=== PATIENT | female | born 1985 | race Caucasian/White ===

== ENCOUNTER 2022-10-15 16:27 | Inpatient (IN) | payer BC, SELFPAY ==
[2022-10-15 17:47] LABS: Mean Corpuscular HGB CONC 30.9 g/dL (32.0-36.0); Mean Corpuscular Hemoglobin 28.4 pg (27.0-31.0); Mean Corpuscular Volume 91.9 fl (78.0-98.0); Mean Platelet Volume 10.1 fL (7.4-10.4); Platelet Count 261 10x3/uL (130-400); RBC Distribution Width 16.5 % (11.5-14.5); Red Blood Cell (RBC) Count 5.28 mill/uL (4.20-5.40); White Blood Cell (WBC) Count 18.3 10x3/uL (4.8-10.8)
[2022-10-15] MEDS ORDERED: Magnesium 2 GM/50 ML BAG (IN WATER) ONE (18:05)
[2022-10-15 18:07] LABS: BHCG - Serum Negative (NEGATIVE); Delete Auto Diff?? YES; Manual Diff?? YES; Pregs Control Background? CLEAR/WHITE (CLR/WHITE); Pregs Control Bar Appear? YES (CONTROL BAR)
[2022-10-15 18:09] LABS: ALT (SGPT) 452 U/L (8-55); AST (SGOT) 637 U/L (5-34); Albumin 3.1 g/dL (3.5-5.0); Alkaline Phosphatase 39 U/L (40-110); Anion Gap 16 mmol/L (10-20); BUN (Urea Nitrogen) 22 mg/dL (7.0-18.7); Calc. Creatinine Clearance 0 mL/min (70-130); Calcium 8.9 mg/dL (7.8-10.44); Carbon Dioxide 26 mmol/L (22-29); Chloride 92 mmol/L (98-107); Estimated GFR 82; Globulin 3.5 g/dL (2.4-3.5); Glucose 118 mg/dL (70-105); Potassium 5.1 mmol/L (3.5-5.1); Protein, Total 6.6 g/dL (6.0-8.3); Sodium 129 mmol/L (136-145)
[2022-10-15] MEDS ORDERED: Ipratropium/Albuterol 3 ML NEB ONE (18:32)
[2022-10-15 18:40] LABS: Anisocytosis SLIGHT = 6-15 cells HPF (0-5); Band 5 % (5-11); Burr Cells MODERATE= 6-15 cells HPF (0-1); CellaVision Operator ID LAB.KB; Hypochromia SLIGHT = 6-15 cells HPF (0-5); Lymphocytes 5 % (21-51); Monocytes 9 % (0-10); Myelocyte 2 % (0-0); Neutrophil 80 % (42-75); Nucleated RBC (Manual Ct) 4 % (0); Platelet Adequacy Comment Platelets Normal; Polychromasia SLIGHT = 2-3 cells HPF (0-2); Smudge Cells 7.8 %; Total Cell Count 103
[2022-10-15 18:45] LABS: CKMB 3.1 ng/mL (0-6.6)
[2022-10-15] MEDS ORDERED: Aspirin Chewable 81 MG TAB ONE (18:59)
[2022-10-15] MEDS ORDERED: cefTRIAXone (ROCEPHIN) 2 GM VIAL ONE (18:59)
[2022-10-15] MEDS ORDERED: predniSONE 20 MG TAB ONE (18:59)
[2022-10-15] MEDS ORDERED: Furosemide 40 MG/4 ML VIAL ONE (18:59)
[2022-10-15] MEDS ORDERED: Azithromycin 250 MG TAB ONE (18:59)
[2022-10-15] MEDS ORDERED: Ondansetron ODT 4 MG TAB PO PRN (19:48)
[2022-10-15] MEDS ORDERED: Senokot S 8.6-50 MG TAB PO PRN (19:48)
[2022-10-15] MEDS ORDERED: Calcium Carbonate 500 MG ChewTAB PO PRN (19:48)
[2022-10-15] MEDS ORDERED: Nicotine 21 MG PATCH TD SCH (20:00)
[2022-10-15] MEDS ORDERED: Carvedilol 3.125 MG TAB PO SCH (21:00)
[2022-10-15] MEDS: Famotidine 20 MG TAB PO SCH (22:08)
[2022-10-15] MEDS ORDERED: Morphine 4 MG/ML VIAL SLOW IVP SCH (23:45)
[2022-10-16] MEDS ORDERED: Ipratropium/Albuterol 3 ML NEB NEB PRN (00:01)
[2022-10-16 00:25] LABS: Troponin I 0.319 ng/mL (< 0.028)
[2022-10-16 02:27] LABS: Amphetamine Not Detected (NotDetected); Barbiturates Screen Not Detected (NotDetected); Benzodiazepine Screen Not Detected (NotDetected); Cocaine Metabolite Screen Not Detected (NotDetected); Methadone Not Detected (NotDetected); Methamphetamine Not Detected (NotDetected); Opiate Screen Not Detected (NotDetected); Oxycodone Screen Not Detected (NotDetected); Phencyclidine (PCP) Not Detected (NotDetected); THC/Cannabinoid Screen Not Detected (NotDetected); Tricyclic Screen Not Detected (NotDetected)
[2022-10-16] MEDS: Furosemide 40 MG/4 ML VIAL SLOW IVP SCH ×2 (04:57→18:30)
[2022-10-16 05:29] LABS: #Monocytes 1.5 thou/uL (0.11-0.59); #Neutrophils 17.3 thou/uL (1.40-6.50); %Basophils 0.2 % (0.0-1.0); %Lymphocytes 4.1 % (21.0-51.0); %Monocytes 7.2 % (0.0-10.0); %Neutrophils 86.2 % (42.0-75.0); Hemoglobin 15.7 g/dL (12.0-16.0); Mean Corpuscular HGB CONC 30.4 g/dL (32.0-36.0); Mean Corpuscular Hemoglobin 28.2 pg (27.0-31.0); Mean Corpuscular Volume 92.6 fl (78.0-98.0); Mean Platelet Volume 10.8 fL (7.4-10.4); Platelet Count 257 10x3/uL (130-400); RBC Distribution Width 16.5 % (11.5-14.5); Red Blood Cell (RBC) Count 5.57 mill/uL (4.20-5.40); White Blood Cell (WBC) Count 20.1 10x3/uL (4.8-10.8)
[2022-10-16 05:58] LABS: ALT (SGPT) 416 U/L (8-55); AST (SGOT) 406 U/L (5-34); Albumin 3.2 g/dL (3.5-5.0); Alkaline Phosphatase 43 U/L (40-110); Anion Gap 16 mmol/L (10-20); BUN (Urea Nitrogen) 23 mg/dL (7.0-18.7); Bilirubin, Total 2.3 mg/dL (0.2-1.2); Calc. Creatinine Clearance 253 mL/min (70-130); Calcium 9.2 mg/dL (7.8-10.44); Carbon Dioxide 29 mmol/L (22-29); Chloride 94 mmol/L (98-107); Estimated GFR 88; Globulin 3.9 g/dL (2.4-3.5); Glucose 166 mg/dL (70-105); Potassium 5.1 mmol/L (3.5-5.1); Protein, Total 7.1 g/dL (6.0-8.3); Sodium 134 mmol/L (136-145)
[2022-10-16] MEDS: cefTRIAXone\\ROCEPHIN 1 GM in Sodium Chloride 0.9% 100 ML IVPB SCH (09:40)
[2022-10-16] MEDS: Aspirin Chewable 81 MG TAB PO SCH (09:41)
[2022-10-16] MEDS: Lisinopril 2.5 MG TAB PO SCH (09:41)
[2022-10-16] MEDS: Famotidine 20 MG TAB PO SCH ×2 (09:41→21:10)
[2022-10-16 10:58] LABS: Actual Bicarbonate (HCO3a) 32.7 mEq/L (22-28); Base Excess (BEa) 2.9 mEq/L (-2.0 to +3.0); Calcium, Ionized (arterial) 1.13 mmol/L (1.12-1.30); Carboxyhemoglobin (COHb) 2.5 gm% (0.0-3.0); Hematocrit-ABG 46 % (36.0-47.0); Hemoglobin (Hb) 15.8 g/dL (12.0-16.0); O2 Tension (PaO2), arterial 72.5 mmHg (80.0-100.0); Potassium - ABG Lab 4.05 mmol/L (3.70-5.30); pH, Arterial 7.265 (7.35-7.45)
[2022-10-16 11:01] LABS: CO2 Tension 73.6 mmHg (35.0-45.0)
[2022-10-16 11:02] LABS: Puncture Site LRA
[2022-10-16] MEDS: Acetaminophen 325 MG TAB PO PRN (22:32)
[2022-10-17] MEDS: Furosemide 40 MG/4 ML VIAL SLOW IVP SCH ×2 (05:55→13:12)
[2022-10-17] MEDS: Lisinopril 2.5 MG TAB PO SCH (09:51)
[2022-10-17] MEDS: Apixaban 5 MG TAB PO SCH ×2 (09:51→21:00)
[2022-10-17] MEDS: Famotidine 20 MG TAB PO SCH ×2 (09:52→21:00)
[2022-10-17] MEDS: Aspirin Chewable 81 MG TAB PO SCH (09:52)
[2022-10-17] MEDS: cefTRIAXone\\ROCEPHIN 1 GM in Sodium Chloride 0.9% 100 ML IVPB SCH (09:55)
[2022-10-17 10:55] LABS: #Eosinphils 0.1 thou/uL (0.0-0.7); #Monocytes 2.3 thou/uL (0.11-0.59); #Neutrophils 12.6 thou/uL (1.40-6.50); %Basophils 0.2 % (0.0-1.0); %Eosinophils 0.3 % (0.0-10.0); %Lymphocytes 7.8 % (21.0-51.0); %Neutrophils 76.7 % (42.0-75.0); Hemoglobin 14.1 g/dL (12.0-16.0); Mean Corpuscular HGB CONC 29.2 g/dL (32.0-36.0); Mean Corpuscular Hemoglobin 28.4 pg (27.0-31.0); Mean Corpuscular Volume 97.2 fl (78.0-98.0); Mean Platelet Volume 10.8 fL (7.4-10.4); Platelet Count 210 10x3/uL (130-400); RBC Distribution Width 16.7 % (11.5-14.5); Red Blood Cell (RBC) Count 4.97 mill/uL (4.20-5.40); White Blood Cell (WBC) Count 16.5 10x3/uL (4.8-10.8)
[2022-10-17 11:17] LABS: Anion Gap 15 mmol/L (10-20); BUN (Urea Nitrogen) 18 mg/dL (7.0-18.7); Calc. Creatinine Clearance 314 mL/min (70-130); Calcium 8.9 mg/dL (7.8-10.44); Carbon Dioxide 37 mmol/L (22-29); Chloride 90 mmol/L (98-107); Estimated GFR 114; Glucose 99 mg/dL (70-105); Sodium 138 mmol/L (136-145)
[2022-10-17] MEDS: Acetaminophen 325 MG TAB PO PRN (21:07)
[2022-10-18] MEDS: Furosemide 40 MG/4 ML VIAL SLOW IVP SCH ×2 (06:37→15:08)
[2022-10-18] MEDS: Aspirin Chewable 81 MG TAB PO SCH (08:13)
[2022-10-18] MEDS: Lisinopril 2.5 MG TAB PO SCH (08:13)
[2022-10-18] MEDS: Famotidine 20 MG TAB PO SCH ×2 (08:14→20:14)
[2022-10-18] MEDS: cefTRIAXone\\ROCEPHIN 1 GM in Sodium Chloride 0.9% 100 ML IVPB SCH (08:14)
[2022-10-18] MEDS: Apixaban 5 MG TAB PO SCH ×2 (08:14→20:14)
[2022-10-18 08:41] LABS: #Basophils 0.1 thou/uL (0.0-0.2); #Eosinphils 0.1 thou/uL (0.0-0.7); #Monocytes 1.5 thou/uL (0.11-0.59); #Neutrophils 10.7 thou/uL (1.40-6.50); %Basophils 0.4 % (0.0-1.0); %Eosinophils 0.4 % (0.0-10.0); %Lymphocytes 8.6 % (21.0-51.0); %Monocytes 10.8 % (0.0-10.0); Hemoglobin 14.8 g/dL (12.0-16.0); Mean Corpuscular HGB CONC 30.1 g/dL (32.0-36.0); Mean Corpuscular Hemoglobin 28.3 pg (27.0-31.0); Mean Platelet Volume 10.6 fL (7.4-10.4); Platelet Count 224 10x3/uL (130-400); RBC Distribution Width 16.7 % (11.5-14.5); Red Blood Cell (RBC) Count 5.23 mill/uL (4.20-5.40); White Blood Cell (WBC) Count 13.7 10x3/uL (4.8-10.8)
[2022-10-18 08:45] LABS: Mean Corpuscular Volume 93.9 fl (78.0-98.0)
[2022-10-18 08:59] LABS: Anion Gap 17 mmol/L (10-20); BUN (Urea Nitrogen) 16 mg/dL (7.0-18.7); Calc. Creatinine Clearance 322 mL/min (70-130); Calcium 9.4 mg/dL (7.8-10.44); Carbon Dioxide 36 mmol/L (22-29); Chloride 90 mmol/L (98-107); Estimated GFR 114; Glucose 144 mg/dL (70-105); Potassium 4.1 mmol/L (3.5-5.1); Sodium 139 mmol/L (136-145)
[2022-10-18] MEDS ORDERED: Iopamidol-370 76% 500 ML MDV (1 ML CHARGE) ONE (10:08)
[2022-10-19] MEDS: Acetaminophen 325 MG TAB PO PRN ×2 (02:03→20:21)
[2022-10-19 03:44] LABS: #Eosinphils 0.1 thou/uL (0.0-0.7); #Monocytes 1.9 thou/uL (0.11-0.59); #Neutrophils 10.6 thou/uL (1.40-6.50); %Basophils 0.1 % (0.0-1.0); %Eosinophils 0.5 % (0.0-10.0); %Lymphocytes 7.7 % (21.0-51.0); %Neutrophils 77.2 % (42.0-75.0); Hemoglobin 13.8 g/dL (12.0-16.0); Mean Corpuscular HGB CONC 29.6 g/dL (32.0-36.0); Mean Corpuscular Volume 94.5 fl (78.0-98.0); Mean Platelet Volume 9.8 fL (7.4-10.4); Platelet Count 239 10x3/uL (130-400); RBC Distribution Width 16.4 % (11.5-14.5); Red Blood Cell (RBC) Count 4.93 mill/uL (4.20-5.40); White Blood Cell (WBC) Count 13.7 10x3/uL (4.8-10.8)
[2022-10-19] MEDS: traMADol HCl 50 MG TAB PO PRN ×2 (03:47→20:21)
[2022-10-19] MEDS ORDERED: Morphine 4 MG/ML VIAL SLOW IVP SCH (04:00)
[2022-10-19 04:04] LABS: BUN (Urea Nitrogen) 11 mg/dL (7.0-18.7); Calc. Creatinine Clearance 348 mL/min (70-130); Calcium 9.3 mg/dL (7.8-10.44); Estimated GFR 117; Glucose 116 mg/dL (70-105)
[2022-10-19 04:14] LABS: Anion Gap 19 mmol/L (10-20); Carbon Dioxide 43 mmol/L (22-29); Chloride 84 mmol/L (98-107); Potassium 3.5 mmol/L (3.5-5.1); Sodium 142 mmol/L (136-145)
[2022-10-19] MEDS: Furosemide 40 MG/4 ML VIAL SLOW IVP SCH (05:49)
[2022-10-19] MEDS: Lisinopril 2.5 MG TAB PO SCH (10:05)
[2022-10-19] MEDS: cefTRIAXone\\ROCEPHIN 1 GM in Sodium Chloride 0.9% 100 ML IVPB SCH (10:05)
[2022-10-19] MEDS: Famotidine 20 MG TAB PO SCH ×2 (10:05→20:21)
[2022-10-19] MEDS: Apixaban 5 MG TAB PO SCH ×2 (10:05→20:20)
[2022-10-19] MEDS: Aspirin Chewable 81 MG TAB PO SCH (10:05)
[2022-10-19] MEDS: Nystatin Powder 15 GM BOT TOP SCH (20:20)
[2022-10-19] MEDS: acetaZOLAMIDE Sodium 500 mg Vial IVP SCH (20:20)
[2022-10-20 04:05] LABS: #Eosinphils 0.2 thou/uL (0.0-0.7); #Monocytes 1.9 thou/uL (0.11-0.59); #Neutrophils 9.5 thou/uL (1.40-6.50); %Basophils 0.2 % (0.0-1.0); %Eosinophils 1.3 % (0.0-10.0); %Lymphocytes 10.4 % (21.0-51.0); %Monocytes 14.4 % (0.0-10.0); %Neutrophils 73.3 % (42.0-75.0); Hemoglobin 13.3 g/dL (12.0-16.0); Mean Corpuscular HGB CONC 28.4 g/dL (32.0-36.0); Mean Corpuscular Hemoglobin 27.9 pg (27.0-31.0); Mean Corpuscular Volume 98.3 fl (78.0-98.0); Mean Platelet Volume 10.3 fL (7.4-10.4); Platelet Count 254 10x3/uL (130-400); RBC Distribution Width 16.4 % (11.5-14.5); Red Blood Cell (RBC) Count 4.76 mill/uL (4.20-5.40); White Blood Cell (WBC) Count 12.9 10x3/uL (4.8-10.8)
[2022-10-20 04:29] LABS: BUN (Urea Nitrogen) 10 mg/dL (7.0-18.7); Calc. Creatinine Clearance 364 mL/min (70-130); Calcium 9.7 mg/dL (7.8-10.44); Estimated GFR 118; Glucose 105 mg/dL (70-105)
[2022-10-20 04:38] LABS: Anion Gap 18 mmol/L (10-20); Carbon Dioxide 42 mmol/L (22-29); Chloride 84 mmol/L (98-107); Potassium 3.3 mmol/L (3.5-5.1); Sodium 141 mmol/L (136-145)
[2022-10-20] MEDS ORDERED: Sterile Water 10 ML ONE (08:25)
[2022-10-20] MEDS: acetaZOLAMIDE Sodium 500 mg Vial IVP SCH ×2 (09:05→20:23)
[2022-10-20] MEDS: Apixaban 5 MG TAB PO SCH ×2 (09:06→20:23)
[2022-10-20] MEDS: Famotidine 20 MG TAB PO SCH ×2 (09:07→20:23)
[2022-10-20] MEDS: Aspirin Chewable 81 MG TAB PO SCH (09:07)
[2022-10-20] MEDS: Lisinopril 2.5 MG TAB PO SCH (09:07)
[2022-10-20] MEDS: cefTRIAXone\\ROCEPHIN 1 GM in Sodium Chloride 0.9% 100 ML IVPB SCH (09:07)
[2022-10-20] MEDS: Nystatin Powder 15 GM BOT TOP SCH ×2 (09:08→20:28)
[2022-10-20] MEDS: Acetaminophen 325 MG TAB PO PRN (20:23)
[2022-10-20] MEDS: traMADol HCl 50 MG TAB PO PRN (20:24)
[2022-10-21] MEDS: Acetaminophen 325 MG TAB PO PRN ×2 (03:40→10:13)
[2022-10-21] MEDS: traMADol HCl 50 MG TAB PO PRN (03:40)
[2022-10-21 03:58] LABS: #Basophils 0.1 thou/uL (0.0-0.2); #Eosinphils 0.2 thou/uL (0.0-0.7); #Neutrophils 11.7 thou/uL (1.40-6.50); %Basophils 0.3 % (0.0-1.0); %Eosinophils 1.4 % (0.0-10.0); %Lymphocytes 7.7 % (21.0-51.0); %Neutrophils 77.1 % (42.0-75.0); Hemoglobin 14.1 g/dL (12.0-16.0); Mean Corpuscular Hemoglobin 27.9 pg (27.0-31.0); Mean Corpuscular Volume 97.2 fl (78.0-98.0); Mean Platelet Volume 10.1 fL (7.4-10.4); Platelet Count 273 10x3/uL (130-400); RBC Distribution Width 16.8 % (11.5-14.5); Red Blood Cell (RBC) Count 5.05 mill/uL (4.20-5.40); White Blood Cell (WBC) Count 15.2 10x3/uL (4.8-10.8)
[2022-10-21 04:09] LABS: Mean Corpuscular HGB CONC 28.7 g/dL (32.0-36.0)
[2022-10-21 04:22] LABS: BUN (Urea Nitrogen) 11 mg/dL (7.0-18.7); Calc. Creatinine Clearance 367 mL/min (70-130); Calcium 10.3 mg/dL (7.8-10.44); Estimated GFR 118; Glucose 106 mg/dL (70-105)
[2022-10-21 05:09] LABS: Carbon Dioxide 37 mmol/L (22-29); Chloride 87 mmol/L (98-107); Potassium 3.8 mmol/L (3.5-5.1); Sodium 139 mmol/L (136-145)
[2022-10-21 05:11] LABS: Anion Gap 19 mmol/L (10-20)
[2022-10-21] MEDS: Famotidine 20 MG TAB PO SCH ×2 (10:13→21:15)
[2022-10-21] MEDS: Apixaban 5 MG TAB PO SCH (10:14)
[2022-10-21] MEDS: Aspirin Chewable 81 MG TAB PO SCH (10:14)
[2022-10-21] MEDS: cefTRIAXone\\ROCEPHIN 1 GM in Sodium Chloride 0.9% 100 ML IVPB SCH (10:14)
[2022-10-21] MEDS: Lisinopril 2.5 MG TAB PO SCH (10:15)
[2022-10-21] MEDS: acetaZOLAMIDE Sodium 500 mg Vial IVP SCH ×2 (10:15→21:30)
[2022-10-21] MEDS: Nystatin Powder 15 GM BOT TOP SCH ×2 (10:34→22:28)
[2022-10-21 12:07] LABS: Actual Bicarbonate (HCO3a) 38.3 mEq/L (22-28); Base Excess (BEa) 7.3 mEq/L (-2.0 to +3.0); Calcium, Ionized (arterial) 1.19 mmol/L (1.12-1.30); Carboxyhemoglobin (COHb) 2.3 gm% (0.0-3.0); Hematocrit-ABG 43 % (36.0-47.0); Hemoglobin (Hb) 14.6 g/dL (12.0-16.0); O2 Tension (PaO2), arterial 93.3 mmHg (80.0-100.0); Potassium - ABG Lab 3.78 mmol/L (3.70-5.30)
[2022-10-21 12:11] LABS: CO2 Tension 89.3 mmHg (35.0-45.0); Puncture Site RRA
[2022-10-21 12:12] LABS: ALV-art Gradient 194.355 mmHg (0-20)
[2022-10-21 13:41] LABS: Base Excess 13.8 mEq/L (-2.0 to +3.0); Calcium, Ionized (venous) 1.21 mmol/L (1.16-1.32); Chloride (VBG) 90 mmol/L (98-106); Hematocrit-VBG 42 % (36.0-47.0); Hemoglobin (Hb) 14.2 g/dL (11.7-15.5); Potassium (VBG) 3.71 mmol/L (3.70-5.30); Sodium 136.2 mmol/L (133-146); pH (venous) 7.271 (7.32-7.43)
[2022-10-21] MEDS: Bumetanide 1 MG/4 ML VIAL IVP SCH (15:12)
[2022-10-21] MEDS ORDERED: Bumetanide 1 MG/4 ML VIAL IVP SCH (15:15)
[2022-10-21] MEDS: Dexmedetomidine 400 MCG, Admixture Fee 1 EACH in Sodium Chloride 0.9% 96 ML IVPB SCH (18:02)
[2022-10-21 20:51] LABS: Base Excess 14.7 mEq/L (-2.0 to +3.0); Calcium, Ionized (venous) 1.16 mmol/L (1.16-1.32); Chloride (VBG) 90 mmol/L (98-106); Hematocrit-VBG 42 % (36.0-47.0); Hemoglobin (Hb) 14.3 g/dL (11.7-15.5); Potassium (VBG) 3.76 mmol/L (3.70-5.30); Sodium 137.5 mmol/L (133-146); pH (venous) 7.387 (7.32-7.43)
[2022-10-21] MEDS ORDERED: Sterile Water 10 ML ONE (21:26)
[2022-10-21] MEDS ORDERED: NOREPINEPHRINE 8 MG/250 ML-D5W 250 ML IVPB SCH (22:30)
[2022-10-22] MEDS: Apixaban 5 MG TAB PO SCH (00:14)
[2022-10-22] MEDS: Dexmedetomidine 400 MCG, Admixture Fee 1 EACH in Sodium Chloride 0.9% 96 ML IVPB SCH ×2 (02:45→11:13)
[2022-10-22 04:29] LABS: #Eosinphils 0.2 thou/uL (0.0-0.7); #Monocytes 1.8 thou/uL (0.11-0.59); #Neutrophils 10.3 thou/uL (1.40-6.50); %Basophils 0.3 % (0.0-1.0); %Eosinophils 1.1 % (0.0-10.0); %Lymphocytes 8.5 % (21.0-51.0); %Monocytes 13.3 % (0.0-10.0); %Neutrophils 76.1 % (42.0-75.0); Hemoglobin 13.7 g/dL (12.0-16.0); Mean Corpuscular HGB CONC 29.1 g/dL (32.0-36.0); Mean Corpuscular Hemoglobin 27.7 pg (27.0-31.0); Mean Corpuscular Volume 94.9 fl (78.0-98.0); Mean Platelet Volume 10.3 fL (7.4-10.4); Platelet Count 319 10x3/uL (130-400); Red Blood Cell (RBC) Count 4.95 mill/uL (4.20-5.40); White Blood Cell (WBC) Count 13.6 10x3/uL (4.8-10.8)
[2022-10-22 05:53] LABS: BUN (Urea Nitrogen) 13 mg/dL (7.0-18.7); Calc. Creatinine Clearance 375 mL/min (70-130); Calcium 10.1 mg/dL (7.8-10.44); Estimated GFR 120; Glucose 108 mg/dL (70-105)
[2022-10-22 06:42] LABS: Carbon Dioxide Greater than 37 mmol/L (22-29); Chloride 89 mmol/L (98-107); Potassium 3.9 mmol/L (3.5-5.1); Sodium 137 mmol/L (136-145)
[2022-10-22 08:21] LABS: Actual Bicarbonate (HCO3v) 37.9 mEq/L (22-28); Base Excess 9.5 mEq/L (-2.0 to +3.0); Calcium, Ionized (venous) 1.16 mmol/L (1.16-1.32); Chloride (VBG) 92 mmol/L (98-106); Hematocrit-VBG 45 % (36.0-47.0); Hemoglobin (Hb) 15.2 g/dL (11.7-15.5); Potassium (VBG) 3.99 mmol/L (3.70-5.30); Sodium 136.3 mmol/L (133-146); pH (venous) 7.365 (7.32-7.43)
[2022-10-22] MEDS: cefTRIAXone\\ROCEPHIN 1 GM in Sodium Chloride 0.9% 100 ML IVPB SCH (08:36)
[2022-10-22] MEDS: Aspirin Chewable 81 MG TAB PO SCH (08:37)
[2022-10-22] MEDS: Famotidine 20 MG TAB PO SCH (08:37)
[2022-10-22] MEDS: acetaZOLAMIDE Sodium 500 mg Vial IVP SCH ×2 (08:37→21:32)
[2022-10-22] MEDS: Nystatin Powder 15 GM BOT TOP SCH ×2 (08:38→21:28)
[2022-10-22] MEDS: Lisinopril 2.5 MG TAB PO SCH (08:38)
[2022-10-22] MEDS ORDERED: Bumetanide 1 MG/4 ML VIAL IVP SCH (10:15)
[2022-10-22] MEDS ORDERED: Sterile Water 10 ML ONE (21:30)
[2022-10-23] MEDS: Dexmedetomidine 400 MCG, Admixture Fee 1 EACH in Sodium Chloride 0.9% 96 ML IVPB SCH (01:35)
[2022-10-23 04:38] LABS: #Basophils 0.1 thou/uL (0.0-0.2); #Eosinphils 0.2 thou/uL (0.0-0.7); #Neutrophils 8.5 thou/uL (1.40-6.50); %Basophils 0.6 % (0.0-1.0); %Eosinophils 1.3 % (0.0-10.0); %Lymphocytes 14.4 % (21.0-51.0); %Monocytes 15.6 % (0.0-10.0); %Neutrophils 67.2 % (42.0-75.0); Hemoglobin 12.2 g/dL (12.0-16.0); Mean Corpuscular HGB CONC 29.8 g/dL (32.0-36.0); Mean Corpuscular Hemoglobin 27.5 pg (27.0-31.0); Mean Corpuscular Volume 92.3 fl (78.0-98.0); Mean Platelet Volume 10.7 fL (7.4-10.4); Platelet Count 298 10x3/uL (130-400); RBC Distribution Width 16.9 % (11.5-14.5); Red Blood Cell (RBC) Count 4.43 mill/uL (4.20-5.40); White Blood Cell (WBC) Count 12.7 10x3/uL (4.8-10.8)
[2022-10-23 05:07] LABS: Anion Gap 12 mmol/L (10-20); BUN (Urea Nitrogen) 24 mg/dL (7.0-18.7); Calc. Creatinine Clearance 349 mL/min (70-130); Calcium 9.8 mg/dL (7.8-10.44); Carbon Dioxide 36 mmol/L (22-29); Chloride 97 mmol/L (98-107); Estimated GFR 118; Glucose 130 mg/dL (70-105); Potassium 3.6 mmol/L (3.5-5.1); Sodium 141 mmol/L (136-145)
[2022-10-23] MEDS ORDERED: Sterile Water 10 ML ONE (08:14)
[2022-10-23] MEDS: acetaZOLAMIDE Sodium 500 mg Vial IVP SCH ×2 (08:21→20:54)
[2022-10-23] MEDS: Bumetanide 1 MG/4 ML VIAL IVP SCH (08:22)
[2022-10-23] MEDS: Aspirin Chewable 81 MG TAB PO SCH (08:22)
[2022-10-23] MEDS: Nystatin Powder 15 GM BOT TOP SCH ×2 (08:22→21:04)
[2022-10-23] MEDS: Lisinopril 2.5 MG TAB PO SCH (08:22)
[2022-10-23] MEDS: Pantoprazole 40 MG VIAL IVP SCH (08:22)
[2022-10-23] MEDS: cefTRIAXone\\ROCEPHIN 1 GM in Sodium Chloride 0.9% 100 ML IVPB SCH (08:33)
[2022-10-23 10:16] LABS: Actual Bicarbonate (HCO3v) 35.1 mEq/L (22-28); Base Excess 9.8 mEq/L (-2.0 to +3.0); Calcium, Ionized (venous) 1.06 mmol/L (1.16-1.32); Chloride (VBG) 97 mmol/L (98-106); Hematocrit-VBG 41 % (36.0-47.0); Hemoglobin (Hb) 13.8 g/dL (11.7-15.5); Potassium (VBG) 3.92 mmol/L (3.70-5.30); Sodium 136.5 mmol/L (133-146)
[2022-10-23] MEDS: Promethazine HCl 12.5 MG in Sodium Chloride 0.9% 50 ML IVPB SCH ×2 (17:11→20:55)
[2022-10-23 23:01] LABS: Hemoglobin 11.8 g/dL (12.0-16.0); Mean Corpuscular HGB CONC 29.7 g/dL (32.0-36.0); Mean Corpuscular Volume 94.1 fl (78.0-98.0); Mean Platelet Volume 10.2 fL (7.4-10.4); Platelet Count 289 10x3/uL (130-400); RBC Distribution Width 16.8 % (11.5-14.5); Red Blood Cell (RBC) Count 4.22 mill/uL (4.20-5.40)
[2022-10-24] MEDS: Promethazine HCl 12.5 MG in Sodium Chloride 0.9% 50 ML IVPB SCH ×2 (05:05→11:11)
[2022-10-24 07:09] LABS: Actual Bicarbonate (HCO3v) 32.7 mEq/L (22-28); Base Excess 5.8 mEq/L (-2.0 to +3.0); Calcium, Ionized (venous) 1.17 mmol/L (1.16-1.32); Chloride (VBG) 100 mmol/L (98-106); Hematocrit-VBG 38 % (36.0-47.0); Hemoglobin (Hb) 12.8 g/dL (11.7-15.5); Potassium (VBG) 3.56 mmol/L (3.70-5.30); Sodium 141.1 mmol/L (133-146)
[2022-10-24] MEDS ORDERED: Sterile Water 10 ML ONE (07:56)
[2022-10-24] MEDS: cefTRIAXone\\ROCEPHIN 1 GM in Sodium Chloride 0.9% 100 ML IVPB SCH (08:04)
[2022-10-24] MEDS: Aspirin Chewable 81 MG TAB PO SCH (08:05)
[2022-10-24] MEDS: acetaZOLAMIDE Sodium 500 mg Vial IVP SCH ×2 (08:06→21:16)
[2022-10-24] MEDS: Pantoprazole 40 MG VIAL IVP SCH (08:09)
[2022-10-24] MEDS: Bumetanide 1 MG/4 ML VIAL IVP SCH (08:12)
[2022-10-24] MEDS: Lisinopril 2.5 MG TAB PO SCH (08:23)
[2022-10-24] MEDS: Nystatin Powder 15 GM BOT TOP SCH ×2 (08:23→21:23)
[2022-10-24 11:08] LABS: Actual Bicarbonate (HCO3v) 45.7 mEq/L (22-28)
[2022-10-24 11:12] LABS: Actual Bicarbonate (HCO3v) 43.5 mEq/L (22-28)
[2022-10-24] MEDS: traMADol HCl 50 MG TAB PO PRN (21:09)
[2022-10-24] MEDS: Acetaminophen 325 MG TAB PO PRN (21:10)
[2022-10-25] MEDS: traMADol HCl 50 MG TAB PO PRN ×2 (04:17→18:04)
[2022-10-25] MEDS: Acetaminophen 325 MG TAB PO PRN ×2 (04:17→20:52)
[2022-10-25 05:22] LABS: #Basophils 0.1 thou/uL (0.0-0.2); #Eosinphils 0.3 thou/uL (0.0-0.7); #Monocytes 1.8 thou/uL (0.11-0.59); #Neutrophils 6.2 thou/uL (1.40-6.50); %Eosinophils 3.3 % (0.0-10.0); %Lymphocytes 16.9 % (21.0-51.0); %Monocytes 17.9 % (0.0-10.0); Hemoglobin 11.4 g/dL (12.0-16.0); Mean Corpuscular HGB CONC 29.2 g/dL (32.0-36.0); Mean Corpuscular Volume 95.8 fl (78.0-98.0); Mean Platelet Volume 10.4 fL (7.4-10.4); Platelet Count 277 10x3/uL (130-400); RBC Distribution Width 16.8 % (11.5-14.5); Red Blood Cell (RBC) Count 4.07 mill/uL (4.20-5.40); White Blood Cell (WBC) Count 10.3 10x3/uL (4.8-10.8)
[2022-10-25 05:45] LABS: Anion Gap 14 mmol/L (10-20); BUN (Urea Nitrogen) 14 mg/dL (7.0-18.7); Calc. Creatinine Clearance 370 mL/min (70-130); Calcium 9.4 mg/dL (7.8-10.44); Carbon Dioxide 30 mmol/L (22-29); Chloride 100 mmol/L (98-107); Estimated GFR 121; Glucose 106 mg/dL (70-105); Potassium 3.7 mmol/L (3.5-5.1); Sodium 140 mmol/L (136-145)
[2022-10-25] MEDS: Bumetanide 1 MG/4 ML VIAL IVP SCH (08:49)
[2022-10-25] MEDS: cefTRIAXone\\ROCEPHIN 1 GM in Sodium Chloride 0.9% 100 ML IVPB SCH (08:49)
[2022-10-25] MEDS: Aspirin Chewable 81 MG TAB PO SCH (08:49)
[2022-10-25] MEDS: acetaZOLAMIDE Sodium 500 mg Vial IVP SCH ×2 (08:49→20:53)
[2022-10-25] MEDS: Pantoprazole 40 MG VIAL IVP SCH (08:51)
[2022-10-25] MEDS: Lisinopril 2.5 MG TAB PO SCH (08:52)
[2022-10-25] MEDS: Nystatin Powder 15 GM BOT TOP SCH ×2 (09:02→21:00)
[2022-10-25] MEDS ORDERED: Polyethylene Glycol 3350 17 GM Packet PO PRN (10:54)
[2022-10-25 11:49] VITALS: BMI 66.3
[2022-10-25] MEDS: Sodium Chloride 0.65% Nasal 44 ML BOT EA NARE SCH (15:57)
[2022-10-25] MEDS ORDERED: Colchicine 0.6 MG TAB PO SCH (17:45)
[2022-10-25] MEDS: Multivit, Therapeutic 1 TAB PO SCH (20:52)
[2022-10-25] MEDS: Docusate 100 MG CAP PO SCH (20:52)
[2022-10-25] MEDS ORDERED: Sterile Water 10 ML ONE (20:55)
[2022-10-25] MEDS ORDERED: Docusate 100 MG CAP PO SCH (21:00)
[2022-10-26] MEDS: Sodium Chloride 0.65% Nasal 44 ML BOT EA NARE SCH ×4 (01:45→22:03)
[2022-10-26] MEDS: traMADol HCl 50 MG TAB PO PRN (02:52)
[2022-10-26 05:05] LABS: #Basophils 0.1 thou/uL (0.0-0.2); #Eosinphils 0.3 thou/uL (0.0-0.7); #Monocytes 1.5 thou/uL (0.11-0.59); #Neutrophils 8.2 thou/uL (1.40-6.50); %Basophils 0.7 % (0.0-1.0); %Eosinophils 2.8 % (0.0-10.0); %Lymphocytes 15.4 % (21.0-51.0); %Monocytes 12.6 % (0.0-10.0); %Neutrophils 67.8 % (42.0-75.0); Hemoglobin 11.3 g/dL (12.0-16.0); Mean Corpuscular HGB CONC 28.8 g/dL (32.0-36.0); Mean Corpuscular Hemoglobin 28.1 pg (27.0-31.0); Mean Corpuscular Volume 97.5 fl (78.0-98.0); Mean Platelet Volume 11.5 fL (7.4-10.4); Platelet Count 291 10x3/uL (130-400); RBC Distribution Width 16.8 % (11.5-14.5); Red Blood Cell (RBC) Count 4.02 mill/uL (4.20-5.40); White Blood Cell (WBC) Count 12.1 10x3/uL (4.8-10.8)
[2022-10-26 05:32] LABS: ALT (SGPT) 29 U/L (8-55); AST (SGOT) 24 U/L (5-34); Albumin 2.8 g/dL (3.5-5.0); Alkaline Phosphatase 29 U/L (40-110); Anion Gap 14 mmol/L (10-20); BUN (Urea Nitrogen) 17 mg/dL (7.0-18.7); Calc. Creatinine Clearance 327 mL/min (70-130); Calcium 9.4 mg/dL (7.8-10.44); Carbon Dioxide 34 mmol/L (22-29); Chloride 98 mmol/L (98-107); Estimated GFR 117; Globulin 3.7 g/dL (2.4-3.5); Glucose 93 mg/dL (70-105); Phosphorus 4.6 mg/dL (2.3-4.7); Potassium 3.6 mmol/L (3.5-5.1); Protein, Total 6.5 g/dL (6.0-8.3); Sodium 142 mmol/L (136-145)
[2022-10-26 06:15] LABS: CellaVision Operator ID lab.abc; Platelet Adequacy Comment Platelets Normal; Polychromasia SLIGHT = 2-3 cells HPF (0-2); RBC Morphology Within Normal Limits; Smudge Cells 3.9 %
[2022-10-26] MEDS: Bumetanide 1 MG/4 ML VIAL IVP SCH (09:00)
[2022-10-26] MEDS: acetaZOLAMIDE Sodium 500 mg Vial IVP SCH ×2 (09:00→20:43)
[2022-10-26] MEDS: cefTRIAXone\\ROCEPHIN 1 GM in Sodium Chloride 0.9% 100 ML IVPB SCH (09:00)
[2022-10-26] MEDS: Lisinopril 2.5 MG TAB PO SCH (09:02)
[2022-10-26] MEDS: Docusate 100 MG CAP PO SCH ×2 (09:02→20:55)
[2022-10-26] MEDS: Aspirin Chewable 81 MG TAB PO SCH (09:02)
[2022-10-26] MEDS: Colchicine 0.6 MG TAB PO SCH ×2 (09:02→20:55)
[2022-10-26] MEDS: Pantoprazole 40 MG VIAL IVP SCH (09:03)
[2022-10-26] MEDS: Nystatin Powder 15 GM BOT TOP SCH ×2 (09:04→22:04)
[2022-10-26] MEDS ORDERED: Sterile Water 10 ML ONE (20:21)
[2022-10-26] MEDS: Multivit, Therapeutic 1 TAB PO SCH (20:55)
[2022-10-27] MEDS: acetaZOLAMIDE Sodium 500 mg Vial IVP SCH ×2 (09:26→20:15)
[2022-10-27] MEDS: Docusate 100 MG CAP PO SCH ×2 (09:28→20:15)
[2022-10-27] MEDS: Colchicine 0.6 MG TAB PO SCH ×2 (09:28→20:15)
[2022-10-27] MEDS: Lisinopril 2.5 MG TAB PO SCH (09:29)
[2022-10-27] MEDS: Sodium Chloride 0.65% Nasal 44 ML BOT EA NARE SCH ×3 (09:30→20:16)
[2022-10-27] MEDS: cefTRIAXone\\ROCEPHIN 1 GM in Sodium Chloride 0.9% 100 ML IVPB SCH (09:31)
[2022-10-27] MEDS: Aspirin Chewable 81 MG TAB PO SCH (09:32)
[2022-10-27] MEDS: Bumetanide 1 MG/4 ML VIAL IVP SCH (09:32)
[2022-10-27] MEDS: Nystatin Powder 15 GM BOT TOP SCH ×2 (09:41→20:15)
[2022-10-27] MEDS ORDERED: Sterile Water 10 ML ONE (09:41)
[2022-10-27] MEDS: Multivit, Therapeutic 1 TAB PO SCH (20:15)
[2022-10-27] MEDS: traMADol HCl 50 MG TAB PO PRN (20:19)
[2022-10-28] MEDS: Acetaminophen 325 MG TAB PO PRN (02:35)
[2022-10-28] MEDS: Aspirin Chewable 81 MG TAB PO SCH (08:56)
[2022-10-28] MEDS: Colchicine 0.6 MG TAB PO SCH ×2 (08:56→20:04)
[2022-10-28] MEDS: Lisinopril 2.5 MG TAB PO SCH (08:57)
[2022-10-28] MEDS: Docusate 100 MG CAP PO SCH ×2 (08:57→20:04)
[2022-10-28] MEDS: Bumetanide 1 MG/4 ML VIAL IVP SCH (08:58)
[2022-10-28] MEDS: acetaZOLAMIDE Sodium 500 mg Vial IVP SCH ×2 (08:58→20:04)
[2022-10-28] MEDS: Sodium Chloride 0.65% Nasal 44 ML BOT EA NARE SCH ×3 (08:59→20:05)
[2022-10-28] MEDS ORDERED: Sterile Water 10 ML ONE (09:01)
[2022-10-28] MEDS: cefTRIAXone\\ROCEPHIN 1 GM in Sodium Chloride 0.9% 100 ML IVPB SCH (09:03)
[2022-10-28] MEDS: Nystatin Powder 15 GM BOT TOP SCH ×2 (09:04→20:04)
[2022-10-28] MEDS: traMADol HCl 50 MG TAB PO PRN (14:07)
[2022-10-28] MEDS ORDERED: Ketorolac Tromethamine 30 MG/ML VIAL IVP SCH (15:45)
[2022-10-28] MEDS: Multivit, Therapeutic 1 TAB PO SCH (20:04)
[2022-10-29] MEDS: traMADol HCl 50 MG TAB PO PRN ×2 (02:34→20:28)
[2022-10-29] MEDS: Lisinopril 2.5 MG TAB PO SCH (08:56)
[2022-10-29] MEDS: Docusate 100 MG CAP PO SCH ×2 (08:56→20:27)
[2022-10-29] MEDS: Aspirin Chewable 81 MG TAB PO SCH (08:56)
[2022-10-29] MEDS: acetaZOLAMIDE Sodium 500 mg Vial IVP SCH ×3 (08:56→20:32)
[2022-10-29] MEDS: Colchicine 0.6 MG TAB PO SCH ×2 (08:56→20:26)
[2022-10-29] MEDS: Bumetanide 1 MG/4 ML VIAL IVP SCH (08:56)
[2022-10-29] MEDS: Sodium Chloride 0.65% Nasal 44 ML BOT EA NARE SCH ×3 (08:57→21:58)
[2022-10-29] MEDS: Nystatin Powder 15 GM BOT TOP SCH ×2 (08:57→22:16)
[2022-10-29] MEDS ORDERED: Sterile Water 10 ML ONE (20:22)
[2022-10-29] MEDS: Multivit, Therapeutic 1 TAB PO SCH (20:27)
[2022-10-29] MEDS: Acetaminophen 325 MG TAB PO PRN (20:27)
[2022-10-30] MEDS ORDERED: Metoprolol Tartrate 25 MG TAB PO SCH ×2 (09:45→21:00)
[2022-10-30] MEDS: Colchicine 0.6 MG TAB PO SCH ×2 (09:46→21:38)
[2022-10-30] MEDS: Lisinopril 2.5 MG TAB PO SCH (09:46)
[2022-10-30] MEDS: Aspirin Chewable 81 MG TAB PO SCH (09:46)
[2022-10-30] MEDS: Docusate 100 MG CAP PO SCH ×2 (09:46→21:38)
[2022-10-30] MEDS: Sodium Chloride 0.65% Nasal 44 ML BOT EA NARE SCH ×3 (09:47→21:42)
[2022-10-30] MEDS: Bumetanide 1 MG/4 ML VIAL IVP SCH (09:47)
[2022-10-30] MEDS: Nystatin Powder 15 GM BOT TOP SCH ×2 (09:48→21:42)
[2022-10-30] MEDS: traMADol HCl 50 MG TAB PO PRN ×2 (09:51→18:37)
[2022-10-30] MEDS ORDERED: Iopamidol 370 76% 100 ML VIAL ONE (10:11)
[2022-10-30] MEDS: Multivit, Therapeutic 1 TAB PO SCH (21:38)
[2022-10-30] MEDS: acetaZOLAMIDE Sodium 500 mg Vial IVP SCH (21:39)
[2022-10-31] MEDS: acetaZOLAMIDE Sodium 500 mg Vial IVP SCH ×2 (09:53→20:05)
[2022-10-31] MEDS: Bumetanide 1 MG/4 ML VIAL IVP SCH (09:58)
[2022-10-31] MEDS: Aspirin Chewable 81 MG TAB PO SCH (09:58)
[2022-10-31] MEDS: Docusate 100 MG CAP PO SCH ×2 (09:59→20:07)
[2022-10-31] MEDS: Lisinopril 2.5 MG TAB PO SCH (09:59)
[2022-10-31] MEDS: Colchicine 0.6 MG TAB PO SCH ×2 (09:59→20:05)
[2022-10-31] MEDS: traMADol HCl 50 MG TAB PO PRN ×2 (10:18→17:45)
[2022-10-31] MEDS: Sodium Chloride 0.65% Nasal 44 ML BOT EA NARE SCH ×3 (10:19→20:06)
[2022-10-31] MEDS: Nystatin Powder 15 GM BOT TOP SCH ×2 (10:19→20:06)
[2022-10-31] MEDS: Acetaminophen 325 MG TAB PO PRN (20:04)
[2022-10-31] MEDS: Apixaban 5 MG TAB PO SCH (20:04)
[2022-10-31] MEDS: Multivit, Therapeutic 1 TAB PO SCH (20:05)
[2022-10-31] MEDS ORDERED: Apixaban 5 MG TAB PO SCH (21:00)
[2022-11-01 04:15] LABS: Actual Bicarbonate (HCO3v) 35.4 mEq/L (22-28); Base Excess 5.9 mEq/L (-2.0 to +3.0); Calcium, Ionized (venous) 1.15 mmol/L (1.16-1.32); Chloride (VBG) 98 mmol/L (98-106); Hematocrit-VBG 39 % (36.0-47.0); Hemoglobin (Hb) 13.2 g/dL (11.7-15.5); Potassium (VBG) 3.86 mmol/L (3.70-5.30); Sodium 140.2 mmol/L (133-146); pH (venous) 7.275 (7.32-7.43)
[2022-11-01] MEDS: acetaZOLAMIDE Sodium 500 mg Vial IVP SCH ×2 (10:27→21:50)
[2022-11-01] MEDS: Bumetanide 1 MG/4 ML VIAL IVP SCH (10:28)
[2022-11-01] MEDS: Colchicine 0.6 MG TAB PO SCH ×2 (10:28→21:43)
[2022-11-01] MEDS: Aspirin Chewable 81 MG TAB PO SCH (10:28)
[2022-11-01] MEDS: Apixaban 5 MG TAB PO SCH ×2 (10:28→21:44)
[2022-11-01] MEDS: Lisinopril 2.5 MG TAB PO SCH (10:29)
[2022-11-01] MEDS: Docusate 100 MG CAP PO SCH ×2 (10:29→21:51)
[2022-11-01] MEDS: traMADol HCl 50 MG TAB PO PRN ×3 (10:34→21:43)
[2022-11-01] MEDS: Nystatin Powder 15 GM BOT TOP SCH ×2 (10:39→21:44)
[2022-11-01] MEDS: Sodium Chloride 0.65% Nasal 44 ML BOT EA NARE SCH ×3 (10:40→21:44)
[2022-11-01] MEDS: Acetaminophen 325 MG TAB PO PRN ×2 (15:54→21:43)
[2022-11-01] MEDS: Multivit, Therapeutic 1 TAB PO SCH (21:43)
[2022-11-02] MEDS: acetaZOLAMIDE Sodium 500 mg Vial IVP SCH ×2 (10:06→20:31)
[2022-11-02] MEDS: Bumetanide 1 MG/4 ML VIAL IVP SCH (10:07)
[2022-11-02] MEDS: Docusate 100 MG CAP PO SCH ×2 (10:07→20:22)
[2022-11-02] MEDS: Aspirin Chewable 81 MG TAB PO SCH (10:07)
[2022-11-02] MEDS: Colchicine 0.6 MG TAB PO SCH ×2 (10:07→20:30)
[2022-11-02] MEDS: Apixaban 5 MG TAB PO SCH ×2 (10:07→20:29)
[2022-11-02] MEDS: Lisinopril 2.5 MG TAB PO SCH (10:08)
[2022-11-02] MEDS: Sodium Chloride 0.65% Nasal 44 ML BOT EA NARE SCH ×3 (10:24→20:31)
[2022-11-02] MEDS: Nystatin Powder 15 GM BOT TOP SCH ×2 (10:24→20:32)
[2022-11-02] MEDS: traMADol HCl 50 MG TAB PO PRN ×2 (13:44→20:30)
[2022-11-02] MEDS: Acetaminophen 325 MG TAB PO PRN ×2 (13:45→20:30)
[2022-11-02] MEDS: Melatonin 3 MG TAB PO PRN (20:29)
[2022-11-02] MEDS: Multivit, Therapeutic 1 TAB PO SCH (20:30)
[2022-11-03] MEDS: Apixaban 5 MG TAB PO SCH ×2 (10:54→21:32)
[2022-11-03] MEDS: Bumetanide 1 MG/4 ML VIAL IVP SCH (10:54)
[2022-11-03] MEDS: Aspirin Chewable 81 MG TAB PO SCH (10:54)
[2022-11-03] MEDS: acetaZOLAMIDE Sodium 500 mg Vial IVP SCH ×2 (10:54→21:40)
[2022-11-03] MEDS: Docusate 100 MG CAP PO SCH ×2 (10:55→21:31)
[2022-11-03] MEDS: Lisinopril 2.5 MG TAB PO SCH (10:55)
[2022-11-03] MEDS: Colchicine 0.6 MG TAB PO SCH ×2 (10:55→21:32)
[2022-11-03] MEDS: Sodium Chloride 0.65% Nasal 44 ML BOT EA NARE SCH ×3 (10:56→21:33)
[2022-11-03] MEDS: Nystatin Powder 15 GM BOT TOP SCH ×2 (10:56→21:50)
[2022-11-03 13:15] VITALS: BP 135/86
[2022-11-03] MEDS: traMADol HCl 50 MG TAB PO PRN ×2 (14:24→21:37)
[2022-11-03] MEDS: Acetaminophen 325 MG TAB PO PRN ×2 (14:25→21:36)
[2022-11-03] MEDS: Multivit, Therapeutic 1 TAB PO SCH (21:32)
[2022-11-03] MEDS ORDERED: Sterile Water 10 ML ONE (21:40)
[2022-11-04 03:33] LABS: Actual Bicarbonate (HCO3a) 32.7 mEq/L (22-28); Base Excess (BEa) 5.8 mEq/L (-2.0 to +3.0); CO2 Tension 57.6 mmHg (35.0-45.0); Carboxyhemoglobin (COHb) 1.1 gm% (0.0-3.0); Hematocrit-ABG 40 % (36.0-47.0); Hemoglobin (Hb) 13.7 g/dL (12.0-16.0); O2 Tension (PaO2), arterial 101.1 mmHg (80.0-100.0); Potassium - ABG Lab 3.58 mmol/L (3.70-5.30); pH, Arterial 7.372 (7.35-7.45)
[2022-11-04 03:34] LABS: Puncture Site RR
[2022-11-04] MEDS: Colchicine 0.6 MG TAB PO SCH ×2 (08:34→21:19)
[2022-11-04] MEDS: Acetaminophen 325 MG TAB PO PRN ×2 (08:34→18:22)
[2022-11-04] MEDS: traMADol HCl 50 MG TAB PO PRN ×2 (08:35→18:22)
[2022-11-04] MEDS: Lisinopril 2.5 MG TAB PO SCH (08:35)
[2022-11-04] MEDS: Aspirin Chewable 81 MG TAB PO SCH (08:35)
[2022-11-04] MEDS: Apixaban 5 MG TAB PO SCH ×2 (08:36→21:19)
[2022-11-04] MEDS: Bumetanide 1 MG/4 ML VIAL IVP SCH (08:36)
[2022-11-04] MEDS: Nystatin Powder 15 GM BOT TOP SCH ×2 (08:36→21:42)
[2022-11-04] MEDS: acetaZOLAMIDE Sodium 500 mg Vial IVP SCH (08:36)
[2022-11-04] MEDS: Docusate 100 MG CAP PO SCH ×2 (08:36→21:42)
[2022-11-04] MEDS: Sodium Chloride 0.65% Nasal 44 ML BOT EA NARE SCH ×3 (08:36→21:41)
[2022-11-04] MEDS ORDERED: Gabapentin 100 MG CAP PO SCH (21:00)
[2022-11-04] MEDS: Multivit, Therapeutic 1 TAB PO SCH (21:19)
[2022-11-04] MEDS: Melatonin 3 MG TAB PO PRN (21:20)
[2022-11-04] MEDS: AcetaZOLAMIDE 250 MG TAB PO SCH (21:40)
[2022-11-05] MEDS: traMADol HCl 50 MG TAB PO PRN (03:30)
[2022-11-05 08:20] VITALS: TEMP 98
[2022-11-05] MEDS: AcetaZOLAMIDE 250 MG TAB PO SCH (08:57)
[2022-11-05] MEDS: Aspirin Chewable 81 MG TAB PO SCH (08:57)
[2022-11-05] MEDS: Colchicine 0.6 MG TAB PO SCH (08:57)
[2022-11-05] MEDS: Nystatin Powder 15 GM BOT TOP SCH (08:58)
[2022-11-05] MEDS: Sodium Chloride 0.65% Nasal 44 ML BOT EA NARE SCH (08:58)
[2022-11-05] MEDS: Lisinopril 2.5 MG TAB PO SCH (08:58)
[2022-11-05] MEDS: Docusate 100 MG CAP PO SCH (08:58)
[2022-11-05] MEDS: Apixaban 5 MG TAB PO SCH (08:58)
[2022-11-05] MEDS ORDERED: Bumetanide 1 MG TAB PO SCH (09:00)
[2022-11-05] MEDS ORDERED: Apixaban 5 MG TAB PO SCH (21:00)
== END 2022-11-05 10:57 | disposition home or self-care (01) | DRG 175 ==
LOC: ERS 16:27 → 2SW 19:56 → IMCU/EMU 10-16 14:03 → CCU 10-21 14:05 → IMCU/EMU 10-27 17:07
PROVIDERS: ADMIT Student in an Organized Health Care Education/Training Program; ATTEND Internal Medicine
PROC: 4A133R1 Monitoring of Arterial Saturation, Peripheral, Percutaneous Approach (ICD-10-PCS; principal; 2022-10-16)
PROC: 5A09457 Assistance with Respiratory Ventilation, 24-96 Consecutive Hours, Continuous Positive Airway Pressure (ICD-10-PCS; 2022-10-17)
PROC: 5A0935A Assistance with Respiratory Ventilation, Less than 24 Consecutive Hours, High Flow/Velocity Cannula (ICD-10-PCS; 2022-10-18)
PROC: 0CJS8ZZ Inspection of Larynx, Via Natural or Artificial Opening Endoscopic (ICD-10-PCS; 2022-10-24)
PROC: 093K7ZZ Control Bleeding in Nasal Mucosa and Soft Tissue, Via Natural or Artificial Opening (ICD-10-PCS; 2022-10-24)
DX: I26.99 Other pulmonary embolism without acute cor pulmonale (principal); G93.41 Metabolic encephalopathy; I50.33 Acute on chronic diastolic (congestive) heart failure; J18.9 Pneumonia, unspecified organism; J96.21 Acute and chronic respiratory failure with hypoxia; J96.22 Acute and chronic respiratory failure with hypercapnia; I21.A1 Myocardial infarction type 2; Z68.44 Body mass index [BMI] 60.0-69.9, adult; J44.1 Chronic obstructive pulmonary disease with (acute) exacerbation; E66.2 Morbid (severe) obesity with alveolar hypoventilation; I82.401 Acute embolism and thrombosis of unspecified deep veins of right lower extremity; E87.3 Alkalosis; D62 Acute posthemorrhagic anemia; E87.1 Hypo-osmolality and hyponatremia; I11.0 Hypertensive heart disease with heart failure; F17.210 Nicotine dependence, cigarettes, uncomplicated; K76.1 Chronic passive congestion of liver; F10.10 Alcohol abuse, uncomplicated; R04.0 Epistaxis; E87.6 Hypokalemia; I77.1 Stricture of artery; Z71.6 Tobacco abuse counseling; Z79.899 Other long term (current) drug therapy; Z90.89 Acquired absence of other organs; Z98.890 Other specified postprocedural states; Z79.82 Long term (current) use of aspirin; Z79.2 Long term (current) use of antibiotics; Z95.1 Presence of aortocoronary bypass graft; Z82.49 Family history of ischemic heart disease and other diseases of the circulatory system; R53.81 Other malaise
CPT/HCPCS: 36415; 36416; 36600; 71045; 71275; 75635; 76705; 80048; 80053; 80306; 82553; 82805; 83735; 83880; 84100; 84484; 84703; 85025; 93005; 93306; 93923; 93970; 94660; 96365; 96375; C9113; J0696; J1120; J1650; J1885; J1940; J2270; J2550; J3475; J3490; J7512; J7620; Q0162; Q9967

== ENCOUNTER 2022-12-11 12:30 | Outpatient (CLI) | payer OTHER | END 2022-12-11 12:31 | disposition home or self-care (01) | LOC: RAD 12:30 | PROVIDERS: ATTEND Internal Medicine Critical Care Medicine | DX: R06.00 Dyspnea, unspecified (principal); J98.4 Other disorders of lung | CPT/HCPCS: 71046 ==